=== PATIENT | female | born 1995 | race Asian ===

== ENCOUNTER 2021-03-05 10:40 | Emergency (ER) | payer BC ==
[~2021-03-05] VITALS: Ht 149.9 cm; Wt 56.1 kg
[2021-03-05 11:00] VITALS: BP 108/60
[2021-03-05] MEDS ORDERED: DIPH,PERTUSS(ACELL),TET VAC/PF 0.5 ML SYRINGE. VAX IM ONE (11:30)
--- NOTE | 2021-03-05 11:30 | RAD ---
Left hand 3 views. HISTORY: Thumb laceration 3 views were taken of the left hand. There is not evidence of an acute fracture or osseous abnormalit y. There is no opaque foreign body at the thumb. IMPRESSION: 1. No osseous abnormality noted in the left hand. Electronically signed by: Luis Thomas MD (03/05/2021 11:28 AM) [facility]
--- NOTE | 2021-03-05 11:34 | PHYS DOC ---
Past Medical History Past Surgical History: No Surgical History Smoking Status: Never Smoker Alcohol Use: None General Adult EDM: Chief Complaint: LACERATION/AVULSION HPI: HPI: Patient is a 25 year old female who presents with comes in after she was cutting some meat this morning with a knife and cut her dorsal thumb over the PIP. She states she put some herbs on the laceration to stop the bleeding. There is no bleeding. Edges are approximated and together. She denies any complete numbness or laxity in the joint. She rates her pain a 5 out of 10 states it is throbbing. She does need a tetanus shot. She denies any past medical history or surgical history. Review of Systems: Review of Systems: Constitutional: Denies fever or chills. [] Eyes: Denies change in visual acuity. [] HENT: Denies nasal congestion or sore throat. [] Respiratory: Denies cough or shortness of breath. [] Cardiovascular: Denies chest pain or edema. [] GI: Denies abdominal pain, nausea, vomiting, bloody stools or diarrhea. [] : Denies dysuria. [] Musculoskeletal: Denies back pain or + left thumb joint pain. [] Integument: Denies rash. +Left thumb laceration [] Neurologic: Denies headache, focal weakness or sensory changes. [] Endocrine: Denies polyuria or polydipsia. [] Lymphatic: Denies swollen glands. [] Psychiatric: Denies depression or anxiety. [] Heart Score: C/O Chest Pain: No Risk Factors: Risk Factors: DM, Current or recent (<one month) smoker, HTN, HLP, family history of CAD, obesity. Risk Scores: Score 0 - 3: 2.5% MACE over next 6 weeks - Discharge Home Score 4 - 6: 20.3% MACE over next 6 weeks - Admit for Clinical Observation Score 7 - 10: 72.7% MACE over next 6 weeks - Early Invasive Strategies Current Medications: Current Medications Medications (Trade) Dose Ordered Sig/Christiana Start Time Stop Time Status Last Admin Dose Admin Lidocaine HCl (Lidocaine 1% 20ml Vial) 20 ml 1X ONCE 03/05/21 11:45 03/05/21 11:46 Allergies: Allergies: Allergies Coded Allergies Type Severity Reaction Last Updated Verified No Known Drug Allergies 03/05/21 No Physical Exam: PE: Constitutional: Well developed, well nourished, no acute distress, non-toxic appearance. [] HENT: Normocephalic, atraumatic, bilateral external ears normal, oropharynx moist, no oral exudates, nose normal. [] Eyes: PERRLA, EOMI, conjunctiva normal, no discharge. [] Neck: Normal range of motion, no tenderness, supple, no stridor. [] Cardiovascular:Heart rate regular rhythm, no murmur [] Lungs & Thorax: Bilateral breath sounds clear to auscultation [] Abdomen: Bowel sounds normal, soft, no tenderness, no masses, no pulsatile masses. [] Skin: Warm, dry, no erythema, no rash. Left dorsal thumb laceration [] Back: No tenderness, no CVA tenderness. [] Extremities: Left dorsal thumb tenderness, no cyanosis, no clubbing, ROM intact, no edema. [] Neurologic: Alert and oriented X 3, normal motor function, normal sensory function, no focal deficits noted. [] Psychologic: Affect normal, judgement normal, mood normal. [] Current Patient Data: Vital Signs: Vital Signs Date Time Temp Pulse Resp B/P (MAP) Pulse Ox O2 Delivery O2 Flow Rate FiO2 03/05/21 11:00 98.4 67 17 108/60 98 Room Air 98.4 EKG: EKG: [] Radiology/Procedures: Radiology/Procedures: [] Impression: [facility] [address] [place] [address] IMAGING REPORT Signed PATIENT: BASHIR GUNN ACCOUNT: [id number] : 1995 LOCATION: ER AGE: 25 SEX: F EXAM STATUS: REG ER ORD. PHYSICIAN: JEB ANDREWS APRN REASON: thumb laceration PROCEDURE: HAND LEFT 3V Left hand 3 views. HISTORY: Thumb laceration 3 views were taken of the left hand. There is not evidence of an acute fracture or osseous abnormality. There is no opaque foreign body at the thumb. IMPRESSION: 1. No osseous abnormality noted in the left hand. Electronically signed by: Luis Victoria MD (03/05/2021 11:28 AM) [facility] DICTATED and SIGNED BY: LUIS VICTORIA MD DATE: 03/05/21 [id number] Course & Med Decision Making: Course & Med Decision Making Pertinent Labs and Imaging studies reviewed. (See chart for details) See HPI. Alert and oriented x4. Ambulatory steady gait. Speaks in full clear sentences. Skin pink warm and dry. After suturing patient's thumb will be placed in a AlumaFoam splint. Radial pulse strong and present. Patient does have full range of motion of the thumb. Cap refills less than 2 seconds. Patient received a tetanus shot in the ED Laceration repair Location: Left dorsal thumb at PIP. U-shaped laceration about 1 cm. Local anesthesia: 1% lidocaine Interrupted sutures/Internal sutures: 7 sutures using 4-0 Nerve/ligament/muscle damage: None Cleaning and irrigation: Chlorhexidine and saline The appropriate timeout was taken. The area was prepped and draped in the usual sterile fashion. The wound was copiously irrigated with normal saline and chlorhexidine. Patient tolerated well without complication. Dressing was applied to the area follow-up education is given to observe for signs and symptoms of infection, bleeding and to follow-up promptly if these occur. Patient can return in 48 hours for a wound recheck. Sutures to be removed in 7 to 10 days. [] Dragon Disclaimer: Dragon Disclaimer: This electronic medical record was generated, in whole or in part, using a voice recognition dictation system. Departure Departure Impression: Primary Impression: Laceration Disposition: HOME / SELF CARE / HOMELESS Condition: STABLE Referrals: NO PCP (PCP) Patient Instructions: Laceration Care, Adult Additional Instructions: Return in 10 days to get your sutures taken out. Watch for signs of infection such as increased swelling, redness or drainage. Keep clean and covered. Use soap and water to clean. JEB ANDREWS TELEMEDICINE PHYSICIAN Mar 05, 2021 11:34
[2021-03-05] MEDS ORDERED: LIDOCAINE 1% Multi-Dose 20 ML VIAL. INJ ONE (11:45)
== END 2021-03-05 12:17 | disposition home or self-care (01) ==
LOC: ER 10:40
DX: S61.012A Laceration without foreign body of left thumb without damage to nail, initial encounter (principal); W26.0XXA Contact with knife, initial encounter; Y93.G9 Activity, other involving cooking and grilling; Y92.89 Other specified places as the place of occurrence of the external cause; Y99.8 Other external cause status
CPT/HCPCS: 12001; 73130; 90471; 90715; 99283; J3490

== ENCOUNTER 2021-03-15 01:25 | Emergency (ER) | payer BC ==
[~2021-03-15] VITALS: Ht 149.9 cm; Wt 60.0 kg
[2021-03-15 01:48] VITALS: BP 103/64
--- NOTE | 2021-03-15 02:07 | PHYS DOC ---
Past Medical History Past Medical History: No Pertinent History Past Surgical History: No Surgical History Smoking Status: Never Smoker Alcohol Use: None General Adult EDM: Chief Complaint: SUTURE/STAPLE REMOVAL Problems: (1) Laceration HPI: HPI: 25-year-old female presents the emergency department requesting suture removal over her thumb. She has no acute complaints, denies any redness, swelling or signs of infection. Review of Systems: Review of Systems: Constitutional: Denies fever or chills. Heart Score: C/O Chest Pain: No Allergies: Allergies: Allergies Coded Allergies Type Severity Reaction Last Updated Verified No Known Drug Allergies 03/05/21 No Physical Exam: PE: Constitutional: Well developed, well nourished, no acute distress, non-toxic a ppearance. [] Skin: Sutures over the left thumb are intact, no signs of infection Extremities: No tenderness, no cyanosis, no clubbing, ROM intact, no edema. [] Neurologic: Alert and oriented X 3, normal motor function, normal sensory function, no focal deficits noted. [] Psychologic: Affect normal, judgement normal, mood normal. [] Current Patient Data: Vital Signs: Vital Signs Date Time Temp Pulse Resp B/P (MAP) Pulse Ox O2 Delivery O2 Flow Rate FiO2 03/15/21 01:48 97.9 55 18 103/64 99 Room Air 97.9 Course & Med Decision Making: Course & Med Decision Making Sutures removed at the bedside, patient discharged in stable condition Departure Departure Impression: Primary Impression: Encounter for removal of sutures Condition: GOOD Referrals: NO PCP (PCP) Patient Instructions: Suture Removal-BERTO Kirk DO Mar 15, 2021 02:07
== END 2021-03-15 02:39 | disposition home or self-care (01) ==
LOC: ER 01:25
DX: S61.011D Laceration without foreign body of right thumb without damage to nail, subsequent encounter (principal); X58.XXXD Exposure to other specified factors, subsequent encounter
CPT/HCPCS: 99281